=== PATIENT | female | born 1980 | race Caucasian/White ===

== ENCOUNTER 2017-11-22 08:16 | Emergency (ER) | payer OTHER ==
[~2017-11-22] VITALS: Ht 160 cm; Wt 77.1 kg
[~2017-11-22 08:16] MED LIST: AUGMENTIN 875 M1 TAB PO; ENDOCET 325 MG-1 TA1 PO; LYRICA100 MG PO; NAPROXEN500 MG PO; NORCO 325 MG-51 TAB PO; ROBAXIN-750750 MG PO
--- NOTE | 2017-11-22 08:32 | ED GI/GU/ABDOMINAL COMPLAINT ---
History of Present Illness General Chief Complaint: Abdominal Pain/Flank Pain Stated Complaint: RT SIDE ABD PAIN Source: patient, old records Exam Limitations: no limitations Vital Signs & Intake/Output Vital Signs & Intake/Output Vital Signs Date Time Temp Pulse Resp B/P B/P Pulse O2 O2 Flow FiO2 Mean Ox Delivery Rate 11/22 1144 97.9 79 18 116/62 99 Room Air 11/22 0819 97.6 104 18 128/86 100 Room Air Room Air Allergies Uncoded Allergies: SEASONAL (03/10/15) Reconcile Medications Amitriptyline HCl 10 MG TABLET 3 TAB PO QPM SLEEP (Reported) Meloxicam 15 MG TABLET 1 TAB PO DAILY PAIN (Reported) Pregabalin (Lyrica) 150 MG CAPSULE 1 CAP PO BID PAIN (Reported) Tramadol HCl 50 MG TABLET 1 TAB PO BID PAIN (Reported) Triage Note: PT TO ED WITH C/O SUDDEN ONSET OF LOWER RIGHT ABD PAIN "WOKE UP FINE THIS MORNING". C/O DIARRHEA X 1 THIS AM. DENIES URINARY PAIN OR NAUSEA. LAST MENSES: 11/06/17 Triage Nurses Notes Reviewed? yes ? n Is pt currently ? No HPI: Patient woke up this morning feeling fine but shortly after getting up she developed a right lower quadrant sharp stabbing pain. The pain is constant. The pain increases with taking steps with bumps in the car. There is no radiation of pain. The pain is 10 out of 10. She had one episode of diarrhea this morning. She denies any dysuria or hematuria. There is no nausea or vomiting. There are no fevers or chills. Past History Travel History Traveled to [place] past 21 day No Medical History Any Pertinent Medical History? 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 No Review of Systems Review of Systems Constitutional: Reports: no symptoms. EENTM: Reports: no symptoms. Respiratory: Reports: no symptoms. Cardiovascular: Reports: no symptoms. GI: Reports: see HPI, abdominal pain, diarrhea. Genitourinary: Reports: no symptoms. Musculoskeletal: Reports: no symptoms. Skin: Reports: no symptoms. Neurological/Psychological: Reports: no symptoms. Hematologic/Endocrine: Reports: no symptoms. Immunologic/Allergic: Reports: no symptoms. All Other Systems: Reviewed and Negative Physical Exam Physical Exam General Appearance: well developed/nourished, alert, awake, anxious, moderate distress Head: atraumatic, normal appearance Eyes: Bilateral: PERRL, EOMI. Ears, Nose, Throat, Mouth: hearing grossly normal, moist mucous membrane Neck: normal inspection, supple, full range of motion Respiratory: normal breath sounds, chest non-tender, no respiratory distress, lungs clear Cardiovascular: regular rate/rhythm, normal peripheral pulses Gastrointestinal: normal bowel sounds, soft, no organomegaly, guarding, rebound, tenderness Back: normal inspection, normal range of motion, NO CVA TENDERNESS Extremities: normal range of motion Neurologic/Psych: no motor/sensory deficits, awake, alert, oriented x 3, normal mood/affect Skin: intact, normal color, warm/dry Core Measures ACS in differential dx? No Sepsis Present: No Sepsis Focused Exam Completed? No Progress Differential Diagnosis: appendicitis, ectopic , intrauterine , ovarian cyst, ovarian torsion, threatened AB, UTI/pyelo Plan of Care: Orders Procedure Date/time Status Add-on Test (ER Only) 11/22 0911 Active HIGH SENSITIVITY CRP 11/22 0835 Complete HUMAN BETA HCG SCREEN 11/22 0835 Complete COMPREHENSIVE METABOLIC PANEL 11/22 0835 Complete CBC WITHOUT DIFFERENTIAL 11/22 0835 Complete CULTURE,URINE 11/22 0826 Active URINE 11/22 0826 Complete URINALYSIS 11/22 0815 Complete Current Medications Sig/Josh Start time Last Medication Dose Stop Time Status Admin Oxycodone/ 2 TAB ONCE ONE 11/22 1415 UNVr Acetaminophen 11/22 1416 (Percocet) Laboratory Tests 11/22/17 0908: Anion Gap 6, Estimated GFR > 60, BUN/Creatinine Ratio 10.0, Glucose 78, Calcium 8.4, Total Bilirubin 0.3, AST 37 H, ALT 45, Alkaline Phosphatase 128 H, C- React Prot High Sens 12.2 H, Total Protein 6.0 L, Albumin 3.3 L, Globulin 2.7 , Albumin/Globulin Ratio 1.2, Total Beta HCG NEGATIVE, CBC w Diff NO MAN DIFF REQ, RBC 4.07 L, MCV 90.1, MCH 31.1 H, MCHC 34.6, RDW 12.9, MPV 7.5, Gran % 50.4, Lymphocytes % 31.5, Monocytes % 9.8 H, Eosinophils % 7.5 H, Basophils % 0.8, Absolute Granulocytes 2.8, Absolute Lymphocytes 1.7, Absolute Monocytes 0.5 , Absolute Eosinophils 0.4, Absolute Basophils 0 11/22/17 0823: Urine Color Cancelled, Urine Clarity Cancelled, Urine pH Cancelled, Ur Specific [place] Cancelled, Urine Protein Cancelled, Urine Ketones Cancelled, Urine Nitrite Cancelled, Urine Bilirubin Cancelled, Urine Urobilinogen Cancelled, Ur Leukocyte Esterase Cancelled, Ur Microscopic Cancelled, Urine Hemoglobin Cancelled, Urine Glucose Cancelled 11/22/17 0815: Urinalysis LIGHT H, Urine Color MARYAM, Urine Clarity HAZY H, Urine pH 7.0, Ur Specific [place] 1.020, Urine Protein 100 H, Urine Ketones TRACE H, Urine Nitrite POS H, Urine Bilirubin NEG, Urine Urobilinogen >=8.0 H, Ur Leukocyte Esterase MOD H, Ur Microscopic SEDIMENT EXAMINED, Urine RBC RARE, Urine WBC 50- 75 H, Ur Epithelial Cells MOD H, Urine Bacteria MOD H, Micro UA Comment MORE INFO: H, Urine Hemoglobin NEG, Urine Glucose 100 H, Urine Test NEGATIVE Microbiology 11/22 814 URINE ROUT: Urine Culture - RECD Diagnostic Imaging: Viewed by Me: Ultrasound. Discussed w/RAD: Ultrasound. Radiology Impression: PATIENT: ANA PARKER PRESENT AGE: 37 PATIENT ACCOUNT NO: [id number] : 78 LOCATION: [facility] ORDERING PHYSICIAN: Shashank Greer MD SERVICE DATE: 11/22/17 EXAM TYPE: US - US-TRANSVAGINAL EXAMINATION: US TRANSVAGINAL CLINICAL INFORMATION: Question right ovarian torsion. Right adnexal pain. COMPARISON: CT abdomen and pelvis 04/30/2011. TECHNIQUE: Multiple grayscale and duplex images of the pelvis were obtained by a skilled cfo controller utilizing transabdominal and transvaginal technique. FINDINGS: There is an anteverted uterus measuring 7.6 cm in length. AP by transverse dimensions are 4.0 x 5.3 cm. Cervical length is 3 cm. There is an intrauterine device within the endometrial cavity. Endometrial stripe thickness is 0.7 cm. The right ovary measures 7.1 x 4.5 x 5.9 cm with an estimated volume of 97.1 mL. There is a well marginated avascular lesion within the right ovary that demonstrates heterogeneously increased echogenicity. Normal arterial and venous waveforms are visualized within the right ovary. The left ovary measures 2.4 x 1.4 x 1.6 cm with an estimated volume of 2.8 mL. There is no left ovarian mass. Normal arterial and venous waveforms are visualized within the left ovary. There is a trace volume of pelvic fluid that is likely physiological. IMPRESSION: There is a well marginated avascular lesion within the right ovary that demonstrates heterogeneously increased echogenicity. This finding may represent a hemorrhagic cyst. There is a trace volume of pelvic fluid. Otherwise normal examination. No evidence to suggest ovarian torsion. DICTATED BY: Sree Dickey MD DATE/TIME DICTATED:11/22/171028 COIN MACHINE SERVICE REPAIRER:ASAEL DATE/TIME TRANSCRIBED:11/22/171028 CONFIDENTIAL, DO NOT COPY WITHOUT APPROPRIATE AUTHORIZATION. <Electronically signed in Other Vendor System> SIGNED BY: Sree Dickey MD 11/22/17 1044, PATIENT: ANA PARKER PRESENT AGE: 37 PATIENT ACCOUNT NO: [id number] : 78 LOCATION: [facility] ORDERING PHYSICIAN: Shashank Greer MD SERVICE DATE: 11/22/17 EXAM TYPE: CAT - CT ABD & PELVIS W IV CONTRAST EXAMINATION: CT ABDOMEN AND PELVIS WITH CONTRAST CLINICAL INFORMATION: Right lower quadrant abdominal pain. Suspect appendicitis. COMPARISON: No relevant prior imaging. TECHNIQUE: Multidetector volumetric imaging was performed of the abdomen and pelvis following IV administration of 95 mL of Optiray 320 intravenous contrast. Sagittal and coronal reformatted images were obtained on the technologist's workstation. DLP: 405.31 mGy-cm FINDINGS: LUNG BASES: There is minimal bibasilar subsegmental atelectasis. No pleural or pericardial effusion. LIVER, GALLBLADDER, AND BILIARY TREE: Liver attenuation is homogeneous and there is no evidence of a discrete hepatic parenchymal mass. No intrahepatic or extrahepatic biliary ductal dilatation. The gallbladder is unremarkable with no evidence of radiopaque gallstones, gallbladder wall thickening, or obvious pericholecystic inflammatory changes. PANCREAS: Unremarkable. SPLEEN: Unremarkable. ADRENAL GLANDS: Unremarkable. KIDNEYS AND URETERS: Kidneys demonstrated symmetric corticomedullary enhancement characteristics. There is no discrete renal parenchymal mass. No abnormal perinephric inflammation or collection. There is no hydronephrosis. No abnormal mass or calcification is visualized along the expected course of the right or left ureter. BLADDER: Unremarkable. GASTROINTESTINAL TRACT: The stomach and small bowel is normal. No free intraperitoneal air. No small bowel obstruction. The appendix and colon are normal. No abnormal perirectal or presacral inflammation. Trace fluid layers within the pelvis. ABDOMINAL WALL: No significant hernia is appreciated. LYMPH NODES: There are no pathologically enlarged mesenteric or retroperitoneal lymph nodes. VASCULAR: The abdominal aorta and inferior vena cava are normal. PELVIC VISCERA: There is an intrauterine device within the endometrial cavity of an anteverted uterus. Similar to the findings demonstrated on the recent pelvic ultrasound there is a 5 cm right adnexal cyst containing layering hyperdense material. There is a trace volume of fluid layering within the pelvis. Left adnexal structures are unremarkable. OSSEOUS STRUCTURES: There is partial lumbarization of the S1 vertebral segment. No acute osseous finding. No worrisome lytic or blastic osseous lesion. IMPRESSION: There is a right hemorrhagic ovarian cyst and trace fluid layers within the pelvis. Otherwise no abnormal finding. The appendix is normal. DICTATED BY: Sree Dickey MD DATE/TIME DICTATED:11/22/171328 COIN MACHINE SERVICE REPAIRER:ASAEL DATE/TIME TRANSCRIBED:11/22/171328 CONFIDENTIAL, DO NOT COPY WITHOUT APPROPRIATE AUTHORIZATION. <Electronically signed in Other Vendor System> SIGNED BY: Sree Dickey MD 11/22/17 1340 Initial ED EKG: none Comments: There is no relief from IV Toradol. Pain has decreased after IV morphine. (Ultrasound results were discussed with the patient. She still has tenderness in the right lower quadrant so we will obtain a CAT scan Departure Departure Disposition: HOME OR SELF CARE Condition: Stable Clinical Impression Primary Impression: Ovarian cyst Referrals: Connie Fuentes MD (PCP/Family) Additional Instructions: FOLLOW UP WITH YOUR GYNOCOLOGIST TAKE PERCOCET NEEDED RETURN IF SYMPTOMS WORSENOR FOR ANY CONCERNS Departure Forms: Customer Survey General Discharge Information Prescriptions: Current Visit Scripts Oxycodone HCl/Acetaminophen (Percocet 5-325 MG Tablet) 1-2 TAB PO Q6P PRN PAIN #16 TAB
[2017-11-22 09:18] LABS: ABSOLUTE BASOPHIL COUNT 0 /CUMM (0.0-0.2); ABSOLUTE EOSINOPHIL COUNT 0.4 /CUMM (0.0-0.7); ABSOLUTE GRANULOCYTE CT 2.8 /CUMM (1.4-6.5); ABSOLUTE LYMPH COUNT 1.7 /CUMM (1.2-3.4); ABSOLUTE MONOCYTE COUNT 0.5 /CUMM (0.10-0.60); BASOPHIL % 0.8 % (0.0-2.0); EOSINOPHIL % 7.5 % (0-5); GRANULOCYTE % 50.4 % (42.2-75.2); HEMATOCRIT 36.6 % (37-47); MEAN CORPUSCULAR HGB 31.1 PG (27.0-31.0); MEAN CORPUSCULAR HGB CONC 34.6 G/DL (33.0-37.0); MEAN CORPUSCULAR VOLUME 90.1 FL (81.0-99.0); MEAN PLATELET VOLUME 7.5 FL (7.4-10.4); PLATELET COUNT 235 /CUMM (130-400); RBC DISTRIBUTION WIDTH 12.9 % (11.5-14.5); RED BLOOD CELL CT 4.07 /CUMM (4.20-5.40); WHITE BLOOD CELL COUNT 5.5 /CUMM (4.8-10.8)
[2017-11-22] MEDS ORDERED: AMITRIPTYLINE H10 M2 PO (09:47)
[2017-11-22] MEDS ORDERED: LYRICA150 M1 PO (09:47)
[2017-11-22] MEDS ORDERED: TRAMADOL HCL50 M1 PO (09:48)
[2017-11-22] MEDS ORDERED: MELOXICAM15 M1 PO (09:48)
--- NOTE | 2017-11-22 10:44 | ULTRASOUND REPORT ---
EXAMINATION: US TRANSVAGINAL CLINICAL INFORMATION: Question right ovarian torsion. Right adnexal pain. COMPARISON: CT abdomen and pelvis 04/30/2011. TECHNIQUE: Multiple grayscale and duplex images of the pelvis were obtained by a skilled blind aide utilizing transabdominal and transvaginal technique. FINDINGS: There is an anteverted uterus measuring 7.6 cm in length. AP by transverse dimensions are 4.0 x 5.3 cm. Cervical length is 3 cm. There is an intrauterine device within the endometrial cavity. Endometrial stripe thickness is 0.7 cm. The right ovary measures 7.1 x 4.5 x 5.9 cm with an estimated volume of 97.1 mL. There is a well marginated avascular lesion within the right ovary that demonstrates heterogeneously increased echogenicity. Normal arterial and venous waveforms are visualized within the right ovary. The left ovary measures 2.4 x 1.4 x 1.6 cm with an estimated volume of 2.8 mL. There is no left ovarian mass. Normal arterial and venous waveforms are visualized within the left ovary. There is a trace volume of pelvic fluid that is likely physiological. IMPRESSION: There is a well marginated avascular lesion within the right ovary that demonstrates heterogeneously increased echogenicity. This finding may represent a hemorrhagic cyst. There is a trace volume of pelvic fluid. Otherwise normal examination. No evidence to suggest ovarian torsion.
--- NOTE | 2017-11-22 13:40 | CT SCAN REPORT ---
EXAMINATION: CT ABDOMEN AND PELVIS WITH CONTRAST CLINICAL INFORMATION: Right lower quadrant abdominal pain. Suspect appendicitis. COMPARISON: No relevant prior imaging. TECHNIQUE: Multidetector volumetric imaging was performed of the abdomen and pelvis following IV administration of 95 mL of Optiray 320 intravenous contrast. Sagittal and coronal reformatted images were obtained on the technologist's workstation. DLP: 405.31 mGy-cm FINDINGS: LUNG BASES: There is minimal bibasilar subsegmental atelectasis. No pleural or pericardial effusion. LIVER, GALLBLADDER, AND BILIARY TREE: Liver attenuation is homogeneous and there is no evidence of a discrete hepatic parenchymal mass. No intrahepatic or extrahepatic biliary ductal dilatation. The gallbladder is unremarkable with no evidence of radiopaque gallstones, gallbladder wall thickening, or obvious pericholecystic inflammatory changes. PANCREAS: Unremarkable. SPLEEN: Unremarkable. ADRENAL GLANDS: Unremarkable. KIDNEYS AND URETERS: Kidneys demonstrated symmetric corticomedullary enhancement characteristics. There is no discrete renal parenchymal mass. No abnormal perinephric inflammation or collection. There is no hydronephrosis. No abnormal mass or calcification is visualized along the expected course of the right or left ureter. BLADDER: Unremarkable. GASTROINTESTINAL TRACT: The stomach and small bowel is normal. No free intraperitoneal air. No small bowel obstruction. The appendix and colon are normal. No abnormal perirectal or presacral inflammation. Trace fluid layers within the pelvis. ABDOMINAL WALL: No significant hernia is appreciated. LYMPH NODES: There are no pathologically enlarged mesenteric or retroperitoneal lymph nodes. VASCULAR: The abdominal aorta and inferior vena cava are normal. PELVIC VISCERA: There is an intrauterine device within the endometrial cavity of an anteverted uterus. Similar to the findings demonstrated on the recent pelvic ultrasound there is a 5 cm right adnexal cyst containing layering hyperdense material. There is a trace volume of fluid layering within the pelvis. Left adnexal structures are unremarkable. OSSEOUS STRUCTURES: There is partial lumbarization of the S1 vertebral segment. No acute osseous finding. No worrisome lytic or blastic osseous lesion. IMPRESSION: There is a right hemorrhagic ovarian cyst and trace fluid layers within the pelvis. Otherwise no abnormal finding. The appendix is normal.
[2017-11-22 14:06] VITALS: BP 130/76
[2017-11-22] MEDS ORDERED: PERCOCET 5-3251 EACH PO (14:06)
== END 2017-11-22 14:18 ==
LOC: ERH 08:16
PROVIDERS: Emergency Medicine
DX: N83.201 Unspecified ovarian cyst, right side (principal)
CPT/HCPCS: 74177; 81001; 81025; 87086; 96361; 96374; 96375; 96376; J1885